=== PATIENT | female | born 1960 | race Native Hawaiian/Other Pacific Islander ===

== ENCOUNTER 2017-01-21 19:18 | Emergency (ER) | payer BC ==
[~2017-01-21] VITALS: Ht 157.5 cm; Wt 56.7 kg
[2017-01-21] MEDS ORDERED: OXYC80TA PO (19:30)
[2017-01-21] MEDS ORDERED: ROXICODONE15 M1 PO (19:31)
[2017-01-21] MEDS ORDERED: TOPI100T (19:32)
[2017-01-21] MEDS ORDERED: METHADONE10 MG OR (19:32)
[2017-01-21 21:56] VITALS: BP 138/74; TEMP 98.2
== END 2017-01-21 21:57 | disposition home or self-care (01) ==
LOC: ED 19:18
DX: S81.832A Puncture wound without foreign body, left lower leg, initial encounter (principal); S81.831A Puncture wound without foreign body, right lower leg, initial encounter; W54.0XXA Bitten by dog, initial encounter
CPT/HCPCS: 36415; 96361; 96365; 99284; J0690; J1885

== ENCOUNTER → 2017-03-08 11:14 | Outpatient (CLI) | payer BC ==
[~2017-03-08 11:14] MED LIST: METHADONE10 MG OR; OXYC80TA PO; ROXICODONE15 M1 PO; TOPI100T
== END | disposition home or self-care (01) ==
LOC: AMB 11:14
DX: Z04.8 Encounter for examination and observation for other specified reasons (principal)

== ENCOUNTER 2017-03-08 12:15 | Emergency (ER) | payer BC ==
[~2017-03-08] VITALS: Ht 157.5 cm; Wt 56.7 kg
[2017-03-08 12:25] VITALS: BP 145/73; TEMP 98.5
== END 2017-03-08 15:01 | disposition home or self-care (01) ==
LOC: ED 12:15
PROC: 0HQ1XZZ Repair Face Skin, External Approach (ICD-10-PCS; principal; 2017-03-08)
DX: S01.81XA Laceration without foreign body of other part of head, initial encounter (principal); W18.09XA Striking against other object with subsequent fall, initial encounter
CPT/HCPCS: 99283

== ENCOUNTER 2020-11-15 15:04 | Outpatient (CLI) | payer BC | END 2020-11-15 20:00 | disposition home or self-care (01) | LOC: RAD 15:04 | PROVIDERS: ATTEND Internal Medicine | DX: M25.572 Pain in left ankle and joints of left foot (principal); R22.42 Localized swelling, mass and lump, left lower limb ==

== ENCOUNTER 2021-06-20 15:39 | Outpatient (CLI) | payer BC ==
[2021-06-20 16:15] LABS: PLATELET COUNT 324 K/uL (152-353)
[2021-06-20 16:24] LABS: POTASSIUM 3.4 mmol/L (3.6-5.2)
[2021-06-20 16:32] LABS: PARTIAL THROMBOPLASTIN TIME 24.2 SECONDS (24.5-33.6)
== END 2021-06-20 22:08 | disposition home or self-care (01) ==
LOC: RAD 15:39
PROVIDERS: ATTEND Internal Medicine Cardiovascular Disease
DX: Z01.818 Encounter for other preprocedural examination (principal)
CPT/HCPCS: 36415; 80053; 81000; 83036; 85027; 85610; 85730; 86140; 87086; 87088

== ENCOUNTER 2022-08-06 19:01 | Outpatient (CLI) | payer BC ==
[2022-08-06 19:50] LABS: PLATELET COUNT 319 K/uL (152-353)
[2022-08-06 20:10] LABS: PARTIAL THROMBOPLASTIN TIME 25.4 SECONDS (24.5-33.6)
== END 2022-08-06 22:10 | disposition home or self-care (01) ==
LOC: LABW 19:01
PROVIDERS: ATTEND Internal Medicine
DX: Z01.818 Encounter for other preprocedural examination (principal); J44.0 Chronic obstructive pulmonary disease with (acute) lower respiratory infection; M51.26 Other intervertebral disc displacement, lumbar region; R10.12 Left upper quadrant pain; R26.81 Unsteadiness on feet; E66.3 Overweight; Z79.899 Other long term (current) drug therapy
CPT/HCPCS: 36415; 83036; 85027; 85610; 85730